=== PATIENT | female | born 1995 | race Caucasian/White ===

== ENCOUNTER 2017-06-24 05:18 | Emergency (ER) | payer MEDICAID ==
[~2017-06-24] VITALS: Ht 162.6 cm; Wt 124.7 kg
[2017-06-24 05:25] VITALS: Ht 162.6 cm; Wt 124.7 kg
[2017-06-24 07:00] LABS: PLATELET COUNT 391 x10^3mcL (130-400)
[2017-06-24 07:28] LABS: RED CELL DISTRIBUTION WIDTH 15.9 % (11.5-14.5)
[2017-06-24 08:25] VITALS: BP 127/87
[2017-06-24 09:02] LABS: BAND NEUTROPHIL 3 % (0-10); BASOPHIL 0 % (0-2); MONOCYTE 3 % (0-7); SEGMENTED NEUTROPHILS 88 % (37-75)
[2017-06-24 09:03] LABS: PLATELET MORPHOLOGY PLATELETS NORMAL; rbc morphology (normal/abnorm) ABNORMAL (NORMAL)
== END 2017-06-24 08:25 | disposition home or self-care (01) ==
LOC: ED 05:18
PROVIDERS: Emergency Medicine
DX: B34.9 Viral infection, unspecified (principal); J06.9 Acute upper respiratory infection, unspecified; J02.9 Acute pharyngitis, unspecified; M79.1 Myalgia
CPT/HCPCS: 36415; 87804

== ENCOUNTER 2019-08-04 23:26 | Emergency (ER) | payer OTHER ==
[~2019-08-04] VITALS: Ht 165.1 cm; Wt 130.2 kg
[2019-08-04 23:29] VITALS: Ht 165.1 cm; Wt 130.2 kg
[2019-08-05 00:54] VITALS: BP 154/85
== END 2019-08-05 00:54 | disposition home or self-care (01) ==
LOC: ED 23:26
DX: R07.89 Other chest pain (principal); R42 Dizziness and giddiness; R51 Headache; Z88.5 Allergy status to narcotic agent; Z90.49 Acquired absence of other specified parts of digestive tract
CPT/HCPCS: J1885; Q0092